=== PATIENT | male | born 1930 | race American Indian/Alaskan Native ===

== ENCOUNTER 2017-07-14 08:31 | Day surgery (SDC) | payer MEDICARE, BC ==
[2017-07-12 08:55] VITALS: BMI 24.0
[2017-07-14 09:20] LABS: BASO # 0.02 K/mm3 (0.0-2.0); BASO % 0.3 % (0.0-3.0); EOS # 0.1 (0.0-0.7); EOS % 2.1 % (1.5-5.0); GRAN # 3.68 (1.4-6.5); GRAN % 54.8 % (50.0-68.0); HEMOGLOBIN 11.8 g/dL (14.0-18.0); LYMPH # 2.5 (1.2-3.4); LYMPH % 36.7 % (22.0-35.0); MEAN CELL VOLUME 86.4 fl (80.0-105.0); MEAN CORPUSCULAR HEMOGLOBIN 28.7 pg (25.0-35.0); MEAN CORPUSCULAR HGB CONC 33.2 g/dl (31.0-37.0); MEAN PLATELET VOLUME 11.9 fl (7.0-11.0); MONO # 0.4 (0.1-0.6); MONO % 6.1 % (1.0-6.0); RBC 4.11 10^6/uL (3.5-6.1); RED CELL DISTRIBUTION WIDTH 12.8 % (11.5-14.5); WHITE BLOOD COUNT 6.7 10^3/ul (4.5-11.0)
[2017-07-14 09:29] LABS: INR 1.09 (0.93-1.08); PARTIAL THROMBOPLASTIN TIME 29.7 Seconds (25.1-36.5); PROTHROMBIN TIME 12.5 SECONDS (9.4-12.5)
[2017-07-14 09:30] LABS: BLOOD UREA NITROGEN 15 mg/dL (7-21); CALCIUM 9.6 mg/dL (8.4-10.5); GFR AFRICAN-AMERICAN > 60; GFR NON-AFRICAN AMERICAN > 60; HDL CHOLESTEROL 42 mg/dL (29-60)
[2017-07-14 09:40] LABS: LDL CHOLESTEROL 82 mg/dL (0-129)
[2017-07-14 09:52] VITALS: RESP 18
[2017-07-14] MEDS ORDERED: Iodixanol 320 MG/ML 200 ML BOTTLE IV ONE (10:10)
[2017-07-14] MEDS ORDERED: Midazolam 2 MG/2 ML VIAL ONE ×2 (10:10→11:50)
[2017-07-14] MEDS ORDERED: Lidocaine 2% Inj (20ml) ONE (10:10)
[2017-07-14 12:41] VITALS: TEMP 97.3
[2017-07-14] MEDS ORDERED: Sodium Chloride 0.9% 1,000 ML IV SCH (12:45)
[2017-07-14 15:30] VITALS: BP 151/86; PULSE 62; O2SAT 97
--- NOTE | 2017-07-14 17:52 | CARDCATH ---
PROCEDURE DATE: 07/14/2017 HISTORY: The patient is an 87-year-old male who presented with an abnormal stress test. His LV function was compromised on nuclear study. Because of this, cardiac catheterization was recommended. PROCEDURE: Left heart catheterization with coronary and left ventriculogram. The right femoral artery was cannulated with a 6-Burmese sheath. There were no complications. I performed moderate sedation which included the presence of an independent trained observer that assisted in monitoring the patient's level of consciousness and physiologic status. After administration of Versed and fentanyl, my intra-service time was 15 minutes. FINDINGS: The findings on catheterization revealed a left ventricle that was globally hypokinetic. Estimated ejection fraction is 40%-45%. His coronary anatomy revealed a right dominant circulation. The RCA revealed intimal irregularities without significant stenosis. The left main artery was unremarkable. The LAD and diagonal vessels revealed intimal irregularities without significant stenosis. The circumflex artery and obtuse marginal branches revealed intimal irregularities without significant stenosis. Angio-Seal was used to close the femoral artery site. The patient tolerated the procedure well. IMPRESSION: In summary, the procedure revealed: 1. Cardiomyopathy with an ejection fraction of 40%-50%. 2. There is diffuse intimal irregularities in the coronary tree. PLAN: 1. Given these findings, the patient's treatment will be continued, his afterload reducers with an FIDE inhibitor. 2. We will continue to follow the patient's blood pressure carefully as well as institute an exercise program. Berry Wallace MD
--- NOTE | 2017-07-14 19:18 | CARD ---
APPROVED REPORT EKG Measurement Heart [id number] <Conclusion> Sinus bradycardia Otherwise normal ECG
== END 2017-07-14 17:30 | disposition home or self-care (01) ==
LOC: CATH 08:31
PROVIDERS: ATTEND Internal Medicine Cardiovascular Disease
DX: I42.9 Cardiomyopathy, unspecified (principal); R94.39 Abnormal result of other cardiovascular function study
CPT/HCPCS: 36415; 80048; 80061; 85025; 85610; 85730; 86850; 86900; 93005; 93458; 99152; C1760; C1769; C1887; C2629; J1644; J2250; J3010; J7040; Q9966

== ENCOUNTER 2018-03-12 17:18 | Emergency (ER) | payer MEDICARE, BC ==
[2018-03-12 17:18] VITALS: BMI 24.0
--- NOTE | 2018-03-12 17:33 | ED PDOC ---
Arrival/HPI - General Historian: Patient - History of Present Illness Narrative History of Present Illness (Text): 03/12/18 17:26 87 y/o male, pmh including htn/hld/bph/glaucoma/alzheimer demantia/paroxymal a.fibb/cardiomyapathy with EF 40-50%, taking aspirin, last tetanus under 7 years ago, nkda, bib daughter, c/o lt. lateral eyebrow/head injury x 1 hour. Pt. was crossing the street with daughter, tripped and sustained the fall on the left sided head, sustained left eyebrow laceration, no LOC, able to recall the whole event, walks with cane, no urinary or bowel incontinence or retention, no other medical or psychological complaints. Past Medical History - Provider Review Nursing Documentation Reviewed: Yes - Infectious Disease Hx of Infectious Diseases: None - Cardiac Hx Pacemaker: No - Pulmonary Hx Respiratory Disorders: No - Neurological Hx Paralysis: No - HEENT Hx HEENT Disorder: Yes - Renal Hx Renal Disorder: No - Endocrine/Metabolic Hx Endocrine Disorders: No - Hematological/Oncological Hx Blood Transfusions: No - Integumentary Hx Dermatological Disorder: No - Musculoskeletal/Rheumatological Hx Musculoskeletal Disorders: Yes (LUMBAR RADICULOPATHY) - Gastrointestinal Hx Gastrointestinal Disorders: (uses colace) - Genitourinary/Gynecological Hx Reproductive Disorders: No - Psychiatric Hx Emotional Abuse: No Hx Physical Abuse: No Hx Substance Use: No - Surgical History Hx Cardiac Catheterization: Yes - Anesthesia Hx Anesthesia Reactions: No Hx Malignant Hyperthermia: No - Suicidal Assessment Feels Threatened In Home Enviroment: No Family/Social History - Physician Review Nursing Documentation Reviewed: Yes Family/Social History: Unknown Family HX Smoking Status: Never Smoked Hx Alcohol Use: Yes (OCCASIONAL WINE) Hx Substance Use: No Allergies/Home Meds Allergies/Adverse Reactions: Allergies No Known Allergies Allergy (Verified 09/10/14 17:49) Home Medications: Home Meds Medication Instructions Recorded Confirmed Potassium Chloride [K-Dur 20 mEq 10 meq PO BRK 03/22/15 07/14/17 ER Tab] amLODIPine [Norvasc] 5 mg PO DAILY 03/22/15 07/14/17 Aspirin [Adult Low Dose Aspirin EC] 81 mg PO DAILY 07/01/17 07/14/17 Memantine HCl [Namenda Xr] 28 mg PO DAILY 07/01/17 07/14/17 Tamsulosin [Flomax] 0.4 mg PO DAILY 07/01/17 07/14/17 Bimatoprost [Lumigan 2.5 ml] 2 drop EACHEYE HS 07/12/17 07/14/17 Brimonidine Tartrate [Alphagan P 2 drop EACHEYE BID 07/12/17 07/14/17 0.1 % Ophth] Cholecalciferol (Vitamin D3) 2,000 unit PO DAILY 07/12/17 07/14/17 [Vitamin D3] Rivastigmine 9.5 mg/24 hr [Exelon 1 patch TD DAILY 07/12/17 07/14/17 9.5 mg Patch] Review of Systems - Review of Systems Constitutional: absent: Fatigue, Fevers Eyes: absent: Vision Changes ENT: absent: Hearing Changes Respiratory: absent: SOB, Cough Cardiovascular: absent: Chest Pain Gastrointestinal: absent: Abdominal Pain, Diarrhea, Nausea, Vomiting Musculoskeletal: absent: Arthralgias Skin: Laceration. absent: Rash, Pruritis, Skin Lesions, Abscess, Ulcer, Cellulitis Neurological: absent: Headache, Dizziness Psychiatric: absent: Anxiety, Depression Physical Exam - Systems Exam Head: Present: Tenderness (mild lt. lateral forehead), Other (Facial: lt. lateral eyebrow visible 2cm superficial to intermediate depth laceration with abrasion superficially, no oozing/discharge, no visible or palpable foreign bodies. ). No: Contusion, Swelling, Ecchymosis, Abrasion, Laceration Pupils: Present: PERRL Extroacular Muscles: Present: EOMI Conjunctiva: Present: Normal Ears: Present: NORMAL TM, Normal Canal. No: Erythema Mouth: Present: Moist Mucous Membranes Pharnyx: No: ERYTHEMA, EXUDATE, TONSILS ENLARGED Nose (External): Present: Atraumatic. No: Abrasion, Contusion, Laceration Nose (Internal): Present: Normal Inspection. No: No Active Bleeding, Rhinorrhea, Septal Hematoma, Epistaxis Neck: Present: Normal Range of Motion, Trachea Midline. No: Meningeal Signs, MIDLINE TENDERNESS, Paraspinal Tenderness, Lymphadenopathy Respiratory/Chest: Present: Clear to Auscultation, Good Air Exchange. No: Respiratory Distress, Accessory Muscle Use, Retracting, Rhonchi, Tender to Palpation Cardiovascular: Present: Regular Rate and Rhythm, Normal S1, S2. No: Murmurs Abdomen: Present: Normal Bowel Sounds. No: Tenderness, Distention, Peritoneal Signs, Rebound, Guarding Back: Present: Normal Inspection Upper Extremity: Present: Normal Inspection, Normal ROM, Neurovascularly Intact. No: Cyanosis, Edema, Tenderness, Swelling, Deformity Lower Extremity: Present: Normal Inspection, NORMAL PULSES, Normal ROM, Neurovascularly Intact, Capillary Refill < 2 s. No: Edema, Tenderness, Swelling, Deformity Neurological: Present: GCS=15, CN II-XII Intact, Speech Normal, Motor Func Grossly Intact Skin: Present: Warm, Dry, Normal Color. No: Rashes Psychiatric: Present: Alert, Oriented x 3, Normal Insight, Normal Concentration Medical Decision Making ED Course and Treatment: 03/12/18 17:37 -CT Head/facial -Wound irrigate, clean and suture 03/12/18 18:22 PROCEDURE: LACERATION REPAIR Performed by the emergency provider Location: left eyebrow Length: 2 cm Description: {"clean wound edges","no foreign bodies"} Distal CMS: Normal. No deficits. Neurovascularly intact. Anesthesia: Lidocaine 1% 0.5cc Preparation: The wound was cleaned with NS 1000cc and Betadyne. The area was prepped and draped in the usual sterile fashion. Exploration: The wound was explored and no foreign bodies were found. Procedure: The wound was closed with 6 nylon. There was {good / appropriate / adequate / loose} approximation. In total, 5 were used with sterile strips. Post-Procedure: Good closure and hemostasis. The patient tolerated the procedure well and there were no complications. CSM remains intact. Post procedure dressing applied. 03/12/18 20:38 -CT Head: No acute intracranial abnormality. Mild periventricular white matter ischemic changes likely chronic in nature. -CT Facial: Unremarkable maxillofacial CT. -Discharge home with tylenol for pain, bacitracin oinment to use after 3rd day, keep the wound dry and clean for 2 days and start cleaning on day 3, sutures removed by day 5, follow up with your own pmd within 2 days, return to the ER for any new or worsening signs or symptoms. - RAD Interpretation Radiology Orders: CT Head: EXAM: CT Head without Intravenous Contrast. CLINICAL HISTORY: Fall TECHNIQUE: Axial computed tomography images of the head/brain without intravenous contrast. 941.89 mGy-cm COMPARISON: None provided. FINDINGS: BRAIN No acute intraparenchymal hemorrhage. No mass lesion. No CT evidence for acute territorial infarct. No midline shift or extra-axial collections. There is mild periventricular white matter ischemic change likely chronic in nature. VENTRICLES: No hydrocephalus. ORBITS: The orbits are unremarkable. SINUSES AND MASTOIDS: The paranasal sinuses and mastoid air cells are clear. BONES: No fracture. SOFT TISSUES: Unremarkable. IMPRESSION: No acute intracranial abnormality. Mild periventricular white matter ischemic changes likely chronic in nature. Electronically signed on Mar 12, 2018 7:54:17 PM EST by: Jose E Slavador M.D., Certified by [employer], Diagnostic Radiology CT Facial: EXAM: CT Maxillofacial without Intravenous Contrast. CLINICAL HISTORY: Fall TECHNIQUE: Axial computed tomography images of the face without intravenous contrast. Sagittal and coronal reformatted images were generated. 716.53 mGy-cm CONTRAST: Without COMPARISON: None provided. FINDINGS: BONES: No acute fracture or aggressive appearing osseous lesion. The mandible is intact. SOFT TISSUES: The soft tissues are unremarkable. SINUSES: The sinuses are clear. ORBITS: The orbits are normal. No retrobulbar hematoma or mass. IMPRESSION: Unremarkable maxillofacial CT. Electronically signed on Mar 12, 2018 8:31:21 PM EST by: Mila Momin M.D., Certified by [facility], Diagnostic Radiology Supervisor [employer]: Radiologist - PA / EYE SPECIALIST / Resident Statement MD/DO has reviewed & agrees with the documentation as recorded. Disposition/Present on Arrival - Present on Arrival Any Indicators Present on Arrival: No History of DVT/PE: No History of Uncontrolled Diabetes: No Urinary Catheter: No History of Decub. Ulcer: No History Surgical Site Infection Following: None - Disposition Have Diagnosis and Disposition been Completed?: Yes Diagnosis: Fall, Abrasion, Eyebrow laceration Disposition: HOME/ ROUTINE Disposition Time: 17:38 Patient Plan: Discharge Patient Problems: Current Active Problems Problem Status Onset Fall Acute Abrasion Acute Eyebrow laceration Acute Condition: IMPROVED Additional Instructions: Discharge home with tylenol for pain, bacitracin oinment to use after 3rd day, keep the wound dry and clean for 2 days and start cleaning on day 3, sutures removed by day 5, follow up with your own pmd within 2 days, return to the ER for any new or worsening signs or symptoms. Prescriptions: Acetaminophen [Tylenol Extra Strength] 500 mg PO QID PRN #30 tablet PRN Reason: Other Bacitracin Ointment [Bacitracin] 1 appful TOP BID #15 g Referrals: Trey Marcum MD [Primary Care Provider] - Follow up with primary Forms: WORK NOTE
[2018-03-12 17:50] VITALS: RESP 18; TEMP 97.8
[2018-03-12 19:35] VITALS: BP 167/80; PULSE 64; O2SAT 97
--- NOTE | 2018-03-13 10:37 | CT ---
Date of service: 03/12/2018 PROCEDURE: CT HEAD WITHOUT CONTRAST. HISTORY: lt. lateral head injury, s/p fall COMPARISON: None available. TECHNIQUE: Axial computed tomography images were obtained through the head/brain without intravenous contrast. Radiation dose: Total exam DLP = 941.89 mGy-cm. This CT exam was performed using one or more of the following dose reduction techniques: Automated exposure control, adjustment of the mA and/or kV according to patient size, and/or use of iterative reconstruction technique. FINDINGS: HEMORRHAGE: No intracranial hemorrhage. BRAIN: No mass effect or edema. Chronic periventricular white matter ischemic disease. VENTRICLES: Unremarkable. No hydrocephalus. CALVARIUM: Unremarkable. PARANASAL SINUSES: Unremarkable as visualized. No significant inflammatory changes. MASTOID AIR CELLS: Unremarkable as visualized. No inflammatory changes. OTHER FINDINGS: None. IMPRESSION: No acute hemorrhage.
--- NOTE | 2018-03-13 10:38 | CT ---
Date of service: 03/12/2018 PROCEDURE: CT MAXILLOFACIAL BONES WITHOUT CONTRAST HISTORY: lt. lateral eyebrow injury, s/p fall COMPARISON: None available. TECHNIQUE: Contiguous axial CT images of the maxillofacial bones were obtained. Coronal and sagittal reformats were generated. Radiation dose: Total exam DLP = 716.53 mGy-cm. This CT exam was performed using one or more of the following dose reduction techniques: Automated exposure control, adjustment of the mA and/or kV according to patient size, and/or use of iterative reconstruction technique. FINDINGS: NASAL BONES: Unremarkable. ORBITS: Unremarkable. PARANASAL SINUSES/ MASTOIDS: Clear. MAXILLA: Unremarkable. MANDIBLE/ TEMPOROMANDIBULAR JOINTS: Unremarkable. SKULL BASE: Unremarkable. TEMPORAL BONES: Middle ears and mastoid grossly unremarkable. OTHER FINDINGS: None. IMPRESSION: Unremarkable non contrast enhanced CT of the maxillofacial bones.
== END 2018-03-12 20:44 | disposition home or self-care (01) ==
LOC: ED 17:18
DX: S01.112A Laceration without foreign body of left eyelid and periocular area, initial encounter (principal); T14.8XXA Other injury of unspecified body region, initial encounter; W01.0XXA Fall on same level from slipping, tripping and stumbling without subsequent striking against object, initial encounter; I10 Essential (primary) hypertension; E78.5 Hyperlipidemia, unspecified; I48.91 Unspecified atrial fibrillation; F02.80 Dementia in other diseases classified elsewhere, unspecified severity, without behavioral disturbance, psychotic disturbance, mood disturbance, and anxiety; G30.9 Alzheimer's disease, unspecified; N40.0 Benign prostatic hyperplasia without lower urinary tract symptoms

== ENCOUNTER 2018-06-27 12:48 | Outpatient (CLI) | payer MEDICARE, BC | END 2018-06-27 12:49 | disposition home or self-care (01) | LOC: RAD 12:48 ==

== ENCOUNTER 2018-08-25 10:24 | Outpatient (CLI) | payer MEDICARE, BC | END 2018-08-25 10:25 | disposition home or self-care (01) | LOC: RAD 10:24 ==